=== PATIENT | female | born 2005 | race Caucasian/White ===

== ENCOUNTER 2025-03-29 01:55 | Emergency (ER) | payer MEDICAID ==
[~2025-03-29] VITALS: Ht 149.9 cm; Wt 48.0 kg
[2025-03-29 02:21] VITALS: TEMP 36.7; O2SAT 100
[2025-03-29] MEDS: LIDOCAINE 5% PATCH TOP SCH (03:52)
[2025-03-29] MEDS: CYCLOBENZAPRINE 10MG TABLET PO ONE (03:53)
[2025-03-29] MEDS: KETOROLAC 15MG/ML VIAL IM ONE (03:53)
[2025-03-29] MEDS ORDERED: NAPR-1176 MT (04:27)
[2025-03-29] MEDS ORDERED: LIDO-53 TP (04:27)
[2025-03-29 04:47] VITALS: BP 126/50; PULSE 68; RESP 18; O2SAT 100
== END 2025-03-29 04:48 | disposition home or self-care (01) ==
LOC: ER 01:55
DX: M25.561 Pain in right knee (principal); M25.562 Pain in left knee; V49.9XXA Car occupant (driver) (passenger) injured in unspecified traffic accident, initial encounter; Y93.89 Activity, other specified; Y92.89 Other specified places as the place of occurrence of the external cause; Y99.8 Other external cause status
CPT/HCPCS: 99283; 73562; 96372; J1885